=== PATIENT | female | born 1945 | race Caucasian/White ===

== ENCOUNTER 2017-03-15 00:25 | Emergency (ER) | payer MEDICARE, BC ==
[~2017-03-15] VITALS: Ht 175.3 cm; Wt 102.0 kg
--- NOTE | ~2017-03-15 | CR2 ---
[facility]. [facility] A Service of [facility] RADIOLOGY TEXT RESULTS PATIENT: WALESKA DAILEY LOCATION: SED : 47 UNIT #: [id number] AGE: [address]: Marck Damon MD SEX: F ORDER DR: [id number] [place] [id number] E MR#: [id number] Acc #: [id number] NAME: WALESKA DAILEY : 1945 SEX: F STUDY DATE/TIME: 03/15/2017 1:50 UNIT: SED ROOM: STUDY DESCRIPTION: CR Abdomen Acute Series Attending Physician: Marck Damon M.D. Ordering Physician: Marck Damon M.D. Primary Care Physician: Geraldine Valdes M.D. MEDICAL IMAGING REPORT This report is preliminary unless electronic signature is present. EXAM Acute abdominal series INDICATION Nausea, vomiting, generalized abdominal pain tonight. PROCEDURE Frontal view chest, supine and upright views abdomen and pelvis. COMPARISON None. FINDINGS No dense consolidation. No free air. Nonobstructed bowel gas pattern. IMPRESSION No acute findings. Dictated by... Mahamed Payton M.D. THIS IS AN ELECTRONICALLY VERIFIED REPORT Mahamed Payton M.D. at 03/15/2017 9:53 PM MARJ/kathie TD: 03/15/2017 11:32 JOB #: [id number] MEDICAL IMAGING REPORT Page 1 of 1
--- NOTE | ~2017-03-15 | EKG ---
PATIENT: WALESKA DAILEY UNIT #: [id number] Ventricular Rate: 104 BPM Atrial Rate: 104 BPM P-R Interval: 178 ms QRS Duration: 98 ms Q-T Interval: 362 ms QTC Calculation(Bezet): 476 ms P [place]: 45 degrees Calculated R [place]: 48 degrees Calculated T [place]: 47 degrees Diagnosis Line: Sinus tachycardia Diagnosis Line: Possible Left atrial enlargement Diagnosis Line: Incomplete right bundle branch block Diagnosis Line: Borderline ECG Diagnosis Line: When compared with ECG of 19-FEB-2015 15:33, Diagnosis Line: QRS axis Shifted right Diagnosis Line: Confirmed by MADISON GOLDMAN MD ([id number]) on Diagnosis Line: 03/15/2017 12:57:12 PM INTERPRETING MD: JONES CHAVEZ
[~2017-03-15 00:25] MED LIST: ALPRAZOLAM PO; AMOX TR-K CLV 81 TA1 PO; CLARITIN10 M3 PO; DIFLUCAN100 MG PO; EXEMESTANE25 MG PO; LEXAPRO; LEXAPRO PO; SYNTHROID; UNSURE OF MEDS; XANAX0.5 MG PO; XENICAL120 MG; [UNRECOGNIZED DRUG - REMARK]
[2017-03-15] MEDS ORDERED: AMOXICILLIN875 MG PO (00:35)
[2017-03-15 01:18] LABS: BASOPHIL% 0.3 % (0-2.5); EOSINOPHIL% 0.2 % (0.0-7.0); HEMATOCRIT 41.2 % (35.0-45.0); LYMPHOCYTE# 1.2 X10e3 (1.0-3.5); LYMPHOCYTE% 8.9 % (17.0-45.0); MEAN CELL VOLUME 92.3 FL (83-96); MEAN CORPUSCULAR HEMOGLOBIN 31.4 PG (28-34); MEAN PLATELET VOLUME 8.1 FL (6.5-11.5); MONOCYTE# 0.4 X10e3 (0-1.0); MONOCYTE% 3.3 % (3.0-12.0); NEUTROPHIL# 11.4 X10e3 (1.5-7.1); NEUTROPHIL% 87.3 % (40-75); PLATELET COUNT 273 X10e3 (140-420); RED BLOOD COUNT 4.47 X10e (3.90-5.30); RED CELL DISTRIBUTION WIDTH 13.2 % (11.0-15.5); WHITE BLOOD COUNT 13.1 X10e3 (4.0-10.5)
[2017-03-15 01:20] LABS: DIFF IND NO
[2017-03-15 01:31] LABS: POC - CKMB 2.3 ng/mL (0.0-7.9); POC - TROPONIN <0.05 ng/mL (<=0.05)
[2017-03-15 01:41] LABS: ALBUMIN SERUM 3.9 g/dL (3.5-5.0); BILIRUBIN,TOTAL 0.6 mg/dL (0.2-2.0); BUN/CREATININE RATIO 22.85; CALCIUM SERUM 9.2 mg/dL (8.4-10.2); CREATININE SERUM 0.7 mg/dL (0.6-1.4); GLOM FILT RATE Estimated 87.8 mL/min (>60); POTASSIUM 3.8 mmol/L (3.5-5.1)
[2017-03-15 02:13] LABS: URINE SOURCE CLEAN CATCH
[2017-03-15 02:15] LABS: MICRO INDICATED? YES; URINE APPEARANCE CLEAR; URINE BILIRUBIN NEG (NEG); URINE BLOOD NEG (NEG); URINE COLOR YELLOW; URINE GLUCOSE NEG (NORM); URINE KETONE 1+ (NEG); URINE LEUKOCYTE ESTERASE 1+ (NEG); URINE NITRATE NEG (NEG); URINE PROTEIN NEG (NEG); URINE SPECIFIC GRAVITY >=1.030 (1.003-1.035); URINE UROBILINOGEN 0.2 MG/DL (NORM)
[2017-03-15 02:21] LABS: CULTURE INDICATED? YES; URINE BACTERIA NEG (NEG)
[2017-03-15 02:22] LABS: URINE MUCUS PRESENT; URINE SQUAMOUS EPITHELIAL CELL OCCAS /[HPF]; URINE TRANSITIONAL EPI CELLS FEW /[HPF]
[2017-03-15 04:00] LABS: POC - CKMB <1.0 ng/mL (0.0-7.9); POC - TROPONIN <0.05 ng/mL (<=0.05)
== END 2017-03-15 04:53 | disposition home or self-care (01) ==
LOC: SED 00:25
DX: N39.0 Urinary tract infection, site not specified (principal); T78.40XA Allergy, unspecified, initial encounter; Z88.2 Allergy status to sulfonamides; Z79.899 Other long term (current) drug therapy
CPT/HCPCS: 36415; 74022; 80053; 81003; 82553; 83690; 84484; 85025; 87086; 93005; 96374; 96375; 99284; J1200; J2405; J2930